=== PATIENT | female | born 1980 | race Two or more races ===

== ENCOUNTER 2023-03-25 08:06 | Outpatient (CLI) | payer MEDICAID ==
[~2023-03-25] VITALS: Ht 152.4 cm; Wt 85.0 kg
[2023-03-25] VITALS (10 sets, daily range): BP systolic 155–185; BP diastolic 85–111; PULSE 63–124; RESP 12–22; O2SAT 100
[2023-03-25] MEDS ORDERED: regadenoson 0.4mg/5ml syringe IV ONE (09:00)
[2023-03-25] MEDS ORDERED: aminophylline 250mg/10ml inj. IV PRN (09:00)
[2023-03-25] MEDS ORDERED: nitroGLYCERIN 0.4mg SUBLingual tab SL PRN (09:10)
== END 2023-03-25 23:59 | disposition home or self-care (01) ==
LOC: RAD 08:06
PROVIDERS: ATTEND Internal Medicine Interventional Cardiology
DX: R07.89 Other chest pain (principal)
CPT/HCPCS: 78452; A9500; J2785